=== PATIENT | male | born 1950 | race Caucasian/White ===

== ENCOUNTER → 2025-05-22 14:05 | Outpatient (BNVA) | payer OTHER, SELFPAY | PROVIDERS: Family Provider Electrodiagnostic Medicine; Referring Provider Family Medicine Geriatric Medicine; Visit Provider Specialist | DX: R20.0 Anesthesia of skin (principal); R20.2 Paresthesia of skin; M79.601 Pain in right arm; M79.602 Pain in left arm | CPT/HCPCS: 95911 ==

== ENCOUNTER 2025-05-22 15:23 | Inpatient (IN) | payer OTHER, SELFPAY ==
[2025-05-22] VITALS (11 sets, daily range): BP systolic 105–180; BP diastolic 59–90; PULSE 57–69; RESP 15–18; TEMP 36.4–37; O2SAT 95–98; BMI 26.4; BMI 25.5
--- NOTE | 2025-05-22 15:28 | ECG_ITS ---
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
--- NOTE | 2025-05-22 15:30 | XR_ITS ---
WS: [id number] Portable AP upright chest, 05/22/2025 Clinical Data: chest pain Comparison: Portable chest, 02/19/2016. Findings: No nodules, masses or effusions are seen. The heart is normal. The pulmonary vascularity is not increased. No pneumonia or pneumothorax is seen. The aortic arch and descending thoracic aorta show tortuosity. Monitor leads are on the chest wall. XR/XR chest 1V portable [id number] Impression: Atherosclerosis.
--- OUTSIDE RECORDS SUMMARY | 2025-05-22 15:40 | XMS_ITS | Encounter Summary ---
Author Organization [employer] [facility] Address [address] [place] [address] Care Team Providers Care Meat And Poultry Inspector Name Role Phone Unavailable Primary Care Provider Unavailabl e Encounter Details Date Type Department Care Team (Latest Contact Info) Description 09/22/2000 Outpatient Historical [facility] Isaiah Tee, Kenney Veloz MD [address] [place] [phone] Unspecified endocrine disorder (Primary Dx) Social History Tobacco Use Types Packs/Day Years Used Date Smoking Tobacco: Never Assessed Sex and Gender Information Value Date Recorded Sex Assigned at Not on file 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
--- OUTSIDE RECORDS SUMMARY | 2025-05-22 15:40 | XMS_ITS | Clinical Summary ---
Author Organization [employer] Address [address] 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
--- OUTSIDE RECORDS SUMMARY | 2025-05-22 15:40 | XMS_ITS | Encounter Summary ---
Author Organization [employer] [facility] Address [address] [place] [address] Care Team Providers Care Pig Farm Manager Name Role Phone Unavailable Primary Care Provider Unavailabl e Encounter Details Date Type Department Care Team (Latest Contact Info) Description 12/17/1998 Outpatient Historical [facility] Isaiah Tee, Kenney Veloz MD [address] [place] [phone] Routine medical exam (Primary Dx) Social History Tobacco Use Types Packs/Day Years Used Date Smoking Tobacco: Never Assessed Sex and Gender Information Value Date Recorded Sex Assigned at Not on file 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
--- OUTSIDE RECORDS SUMMARY | 2025-05-22 15:40 | XMS_ITS | Encounter Summary ---
Author Organization [employer] [facility] Address [address] [place] [address] Care Team Providers Care Senior Web Developer Name Role Phone Unavailable Primary Care Provider Unavailabl e Encounter Details Date Type Department Care Team (Latest Contact Info) Description 09/24/1998 Outpatient Historical [facility] Isaiah Tee, Kenney Veloz MD [address] [place] [phone] Allergic rhinitis, cause unspecified (Primary Dx) Social History Tobacco Use Types Packs/Day Years Used Date Smoking Tobacco: Never Assessed Sex and Gender Information Value Date Recorded Sex Assigned at Not on file 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
--- OUTSIDE RECORDS SUMMARY | 2025-05-22 15:40 | XMS_ITS | Encounter Summary ---
Author Organization [employer] [facility] Address [address] [place] [address] Care Team Providers Care Post Hole Digging Machine Operator Name Role Phone Unavailable Primary Care Provider Unavailabl e Encounter Details Date Type Department Care Team (Latest Contact Info) Description 10/02/2000 Outpatient Historical [facility] Isai Horan MD [address] [phone] Counseling NOS(V65.40) (Primary Dx) Social History Tobacco Use Types Packs/Day Years Used Date Smoking Tobacco: Never Assessed Sex and Gender Information Value Date Recorded Sex Assigned at Not on file 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
--- OUTSIDE RECORDS SUMMARY | 2025-05-22 15:40 | XMS_ITS | Encounter Summary ---
Author Organization [employer] [facility] Address [address] [place] [address] Care Team Providers Care Gravel Wheeler Name Role Phone Unavailable Primary Care Provider Unavailabl e Encounter Details Date Type Department Care Team (Latest Contact Info) Description 11/08/2001 Outpatient Historical [facility] Isaiah Tee, Kenney Veloz MD [address] [place] [phone] ALLERGIC RHINITIS NEC (Primary Dx); BRONCHITIS NOS Social History Tobacco Use Types Packs/Day Years Used Date Smoking Tobacco: Never Assessed Sex and Gender Information Value Date Recorded Sex Assigned at Not on file 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
--- OUTSIDE RECORDS SUMMARY | 2025-05-22 15:40 | XMS_ITS | Encounter Summary ---
Author Organization [employer] [facility] Address [address] [place] [address] Care Team Providers Care Employment Program Representative Name Role Phone Unavailable Primary Care Provider Unavailabl e Encounter Details Date Type Department Care Team (Latest Contact Info) Description 10/23/2000 Outpatient Historical [facility] Isaiah Tee, Kenney Veloz MD [address] [place] [phone] Esophageal reflux (Primary Dx) Social History Tobacco Use Types Packs/Day Years Used Date Smoking Tobacco: Never Assessed Sex and Gender Information Value Date Recorded Sex Assigned at Not on file 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
[2025-05-22 15:53] LABS: Hematocrit 44.3 % (37-53); Hemoglobin 14.60 g/dL (11.27-16.99); Mean Corpuscular HGB Conc 33.0 g/dL (30-55); Mean Corpuscular Hemoglobin 28.7 pg (27-33); Mean Corpuscular Volume 87.0 fl (82-101); Nucleated Red Blood Cells % 0 %; Platelet Count 302 10^3/cmm (157-399); Red Blood Count 5.09 10^6/uL (3.85-5.65); White Blood Count 12.49 10^3/uL (3.29-11.43)
[2025-05-22 16:19] LABS: Troponin(5th) Baseline 225 ng/L (0-15)
[2025-05-22 16:20] LABS: Slide Review Slide Review Perform
--- NOTE | 2025-05-22 16:23 | W.ED.CHESTPA ---
HPI - Chest Pain General: Chief Complaint: Chest Pain Stated Complaint: chest pain / abn labs (sent by vt) Time Seen by Provider: 05/22/25 15:53 History of Present Illness: 75-year-old male presents emergency room with complaint of chest pain. He was seen at the [facility] and had a single troponin done which resulted in greater than 400.. He had been intermittently having chest pain for 2 weeks. He is intermittently having chest pain for the last 2 weeks. He was directed to the emergency room by his primary care doctor. Initial EKG does not show any acute changes. Patient states symptoms began 2 weeks ago he an episode where after he worked during the day that night it woke him up he had severe shortness of breath diaphoresis chest pain for several hours it resolved he rolled off the tach fever since then he is intermittently had symptoms with exertion. He has been very mild chest pain now. Associated symptoms: Deny abdominal pain, dyspnea or fever(s) Related Data Home Medications ?Medication ?Instructions ?Recorded ?Confirmed buspirone 10 mg tablet 5 mg PO BID 05/23/25 05/23/25 cyanocobalamin (vitamin B-12) 1,000 mcg PO DAILY 05/23/25 05/23/25 1,000 mcg tablet pantoprazole 20 mg tablet,delayed 20 mg PO QAM 05/23/25 05/23/25 release (Protonix) Previous Rx's ?Medication ?Instructions ?Recorded apixaban 5 mg tablet (Eliquis) 5 mg PO BID@0900,2100 90 days #90 05/24/25 tabs atorvastatin 40 mg tablet 40 mg PO BEDTIME 90 days #90 tabs 05/24/25 clopidogrel 75 mg tablet 75 mg PO DAILY 90 days #90 tabs 05/24/25 Allergies Allergy/AdvReac Type Severity Reaction Status Date / Time No Known Allergies Allergy Verified 05/22/25 15:34 Review of Systems Const: Denies: fever(s) or chills Card: Reports: chest pain Resp: Denies: dyspnea GI: Denies: abdominal pain : Denies: dysuria, urinary frequency or urinary urgency Musc: Denies: neck pain or back pain Skin/Breast: Denies: rash PFSH ED PFSH: Social History Smoking and tobacco/nicotine status: never used tobacco/nicotine Physical Exam Const: GENERAL APPEARANCE: cooperative ORIENTATION/CONSCIOUSNESS: Yes awake, Yes oriented to person, Yes oriented to place and Yes oriented to time HENMT: COMMON NORMALS: normocephalic, atraumatic and hearing grossly normal bilaterally HEAD & SCALP: normocephalic and atraumatic Resp: COMMON NORMALS: normal respiratory effort, No retractions, No use of accessory muscles and clear to auscultation bilaterally AUSCULTATION: clear to auscultation bilaterally Cardio: COMMON NORMALS: regular rate, regular rhythm and No murmurs present (Cardio) RATE: regular rate RHYTHM: regular rhythm GI: COMMON NORMALS: Soft to palpation and No hepatosplenomegaly present AUSCULTATION: Yes normoactive bowel sounds PALPATION: Yes Soft to palpation, No Tenderness to palpation present (GI), No Guarding due to palpation present (GI) and Yes No hepatosplenomegaly present Extremity: COMMON NORMALS: normal to inspection, capillary refill normal, no clubbing, cyanosis or edema, no calf tenderness and no pedal edema Neuro: SENSORIUM/ORIENTATION: Yes oriented to person, Yes oriented to place and Yes oriented to time Skin: COMMON NORMALS: no rashes or lesions noted GENERAL SKIN EXAM: no rashes or lesions noted Course Vital Signs: Vital signs: Vital Signs Temperature 97.3 F L 05/24/25 10:17 Pulse Rate 54 L 05/24/25 10:17 Respiratory Rate 16 05/24/25 10:17 Blood Pressure 116/78 05/24/25 10:17 Pulse Oximetry 96 05/24/25 10:17 Oxygen Delivery Me thod Room Air 05/24/25 03:47 MDM - Chest Pain Medical Decision Making Medical decision making Social determinants: None I reviewed the patient's medical record. I reviewed the patient's current home meds. Alternate historians: Family members. Differential diagnosis: Acute coronary syndrome versus PE versus congestive heart failure Lab Review: CBC normal white count normal hemoglobin and platelet. Initial troponin 225 with a 1 hour troponin of 204. Blood glucose 120 remainder the chemistries are normal BNP 697. Imaging:Chest x-ray mild hyperinflation no cardiomegaly no effusions no pulmonary aphasia Assessment of risk Level of risk: High Hospitalization considerations: Hospitalized based on elevated troponins Reexamination: No chest pain no acute EKG changes Assessment and plan: Admit with NSTEMI with elevated troponin. Discussed with hospitalist orders written will consult cardiology patient initiated on heparin weight-based protocol. Lab Data 05/24/25 03:07 05/24/25 03:07 Radiology Impressions Chest X-Ray 05/22/25 15:30 Impression: Atherosclerosis. Laboratory Results WBC 12.49 10^3/uL (3.29-11.43) H 05/22/25 15:44 RBC 5.09 10^6/uL (3.85-5.65) 05/22/25 15:44 Hgb 14.60 g/dL (11.27-16.99) 05/22/25 15:44 Hct 44.3 % (37-53) 05/22/25 15:44 MCV 87.0 fl (82-101) 05/22/25 15:44 MCH 28.7 pg (27-33) 05/22/25 15:44 MCHC 33.0 g/dL (30-55) 05/22/25 15:44 RDW 13.4 % (12.1-15.1) 05/22/25 15:44 Plt Count 302 10^3/cmm (157-399) 05/22/25 15:44 MPV 10.5 fL (7.4-10.4) H 05/22/25 15:44 Neut % (Auto) 35.5 % 05/22/25 15:44 Lymph % (Auto) 49.1 % 05/22/25 15:44 [place] % (Auto) 12.2 % 05/22/25 15:44 Eos % (Auto) 2.5 % 05/22/25 15:44 Baso % (Auto) 0.5 % 05/22/25 15:44 Neut # (Auto) 4.43 10^3/uL (1.8-7.7) 05/22/25 15:44 Lymph # (Auto) 6.1 10^3/uL (0.8-4.8) H 05/22/25 15:44 [place] # (Auto) 1.5 10^3/uL (0.2-0.9) H 05/22/25 15:44 Eos # (Auto) 0.3 10^3/uL (0.0-0.8) 05/22/25 15:44 Baso # (Auto) 0.1 10^3/uL (0.0-0.1) 05/22/25 15:44 Nucleated RBC % (auto) 0 % 05/22/25 15:44 Nucleated RBCs # 0.0 /100WBC 05/22/25 15:44 Sodium 138 mmol/L (136-145) 05/22/25 15:44 Potassium 4.5 mmol/L (3.5-5.1) 05/22/25 15:44 Chloride 99 mmol/L (98-107) 05/22/25 15:44 Carbon Dioxide 26 mmol/L (22-29) 05/22/25 15:44 Anion Gap 17.5 (5-19) 05/22/25 15:44 BUN 23 mg/dL (8-23) 05/22/25 15:44 Creatinine 1.0 mg/dL (0.7-1.2) 05/22/25 15:44 GFR Calculation Not Reportable 05/22/25 15:44 Glucose 102 mg/dL (65-115) 05/22/25 15:44 Estimat Average Glucose 114 05/22/25 15:44 Hemoglobin A1c 5.6 % (4.0-6.0) 05/22/25 15:44 Calculated Osmolality 290 mOsm/kg (285-295) 05/22/25 15:44 Calcium 9.7 mg/dL (8.5-10.5) 05/22/25 15:44 Total Bilirubin 0.2 mg/dL (0.15-1.2) 05/22/25 15:44 AST 19 U/L (0-40) 05/22/25 15:44 ALT 15 U/L (0-41) 05/22/25 15:44 Alkaline Phosphatase 98 U/L (40-130) 05/22/25 15:44 Troponin T Baseline 225 ng/L (0-15) H* 05/22/25 15:44 Troponin T 60 Minute 204.9 ng/L (0-15) H 05/22/25 16:32 Delta Troponin T -20.1 ABS# (0-10) L 05/22/25 16:32 NT-Pro-B Natriuret Pep 697 pg/mL (0-450) H 05/22/25 15:44 Total Protein 7.6 g/dL (6.6-8.7) 05/22/25 15:44 Albumin 4.4 g/dL (3.5-5.2) 05/22/25 15:44 Globulin 3.2 g/dL (1.3-4.6) 05/22/25 15:44 Triglycerides 284 mg/dL (0-150) H 05/22/25 15:44 Cholesterol 260 mg/dL (0-200) H 05/22/25 15:44 LDL Cholesterol, Calc 163 mg/dL (50-129) H 05/22/25 15:44 HDL Cholesterol 40 mg/dL (60-100) L 05/22/25 15:44 LDL/HDL Ratio 4.08 RATIO (0.00-3.22) H 05/22/25 15:44 Cholesterol/HDL Ratio 6.50 mg/dL (1.0-5.00) H 05/22/25 15:44 TSH 1.22 uIU/mL (0.27-4.20) 05/22/25 15:44 All radiology interpretation(s) finalized by discharge EKG Data EKG 1: I personally reviewed and interpreted this EKG as follows: Interpretation: EKG 05/22/2025 1528 normal sinus rhythm rate of 69 WA interval 180 QTc [address] elevation. Nondiagnostic Q waves in 2 and aVF. No previous EKGs for comparison EKG 2: I personally reviewed and interpreted this EKG as follows: Interpretation: EKG 05/22/2025 1658 sinus rhythm nondiagnostic Q waves in 2 3 and aVF. Some mild lateral ST depression. No acute ST elevation. Compared to EKG done earlier same day mild ST depression in V4 and 5 is new. Discharge Plan Discharge Patient Disposition: Admitted As Inpatient Admit Provider: Sin Fajardo Clinical Impression: NSTEMI (non-ST elevated myocardial infarction), Chest pain, Hypertension, Atrial fibrillation Condition: Stable Discharge Diet: Cardiac Discharge Activity: Resume usual activity Coding Level of Care Code ED Inspector Floor for Chg Fwd Heart Score HEART Score Components History: Highly Suspicious EKG: Non-specific Changes Age: 65 or more yrs Risk Factors: 1 or 2 Risk Factors Troponin: Baseline Trop >45 ng/L HEART Score RESULT HEART Score: 8
--- NOTE | 2025-05-22 16:30 | ECG_ITS ---
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
[2025-05-22 16:40] LABS: Alanine Aminotransferase 15 U/L (0-41); Albumin Level 4.4 g/dL (3.5-5.2); Alkaline Phosphatase 98 U/L (40-130); Anion Gap 17.5 (5-19); Aspartate Amino Transferase 19 U/L (0-40); Blood Urea Nitrogen 23 mg/dL (8-23); Calcium 9.7 mg/dL (8.5-10.5); Carbon Dioxide 26 mmol/L (22-29); Chloride 99 mmol/L (98-107); Globulin 3.2 g/dL (1.3-4.6); Glucose 102 mg/dL (65-115); NT Pro B Type Natriuretic Pept 697 pg/mL (0-450); Osmolality Calculated 290 mOsm/kg (285-295); Potassium 4.5 mmol/L (3.5-5.1); Sodium 138 mmol/L (136-145); Total Protein 7.6 g/dL (6.6-8.7)
--- NOTE | 2025-05-22 17:01 | P.CONIM_ITS ---
<Statement entered by Cruz Berman M.D - 05/29/25 10:55> Patient was cared for in conjunction with an advanced practice practitioner.? I reviewed the chart and all pertinent data including imaging, telemetry, and laboratory results.? I discussed the patient in detail with the advanced practice practitioner.? Please see? their documentation for consult note, testing results and agreed upon plan of care for the patient. Providers/Reason For Consult 2 Consulting Physician/Specialty*: Dr. Berman Reason for Consult*: Chest pain, NSTEMI Requesting Physician: Dr. Enrique History of Present Illness History of Present Illness Foreign Nina is a 75 year old male history of hypertension, no known cardiac history, never smoker, postive family hx for heart disease came into the ER today due to ongoing chest pain. 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 At the time, he thought that it was residual side effects from his tick fever. The next day, he developed chest pain that woke him up from his sleep with nausea and cold sweats. In the ED EKG showed no acute ST changes or T wave abnormalities. He states at this time, he is mostly chest pain free but has a small pain to the left side of his chest. He was given aspirin 324 mg. Troponin was elevated at 225-204. Vitals are stable. Labs are stable. Review of Systems 2 Narrative: Reports slight chest pain to the left side of the chest that is intermittent denies nausea/vomiting denies stroke like symptoms Denies shortness of breath, swelling, orthopnea denies fever chills or body aches Medications/Allergies Home Medications ?Medication ?Instructions ?Recorded ?Confirmed ?Last Taken ?Type No Known Home Medications 05/22/2505/05 Unknown History Allergies Allergy/AdvReac Type Severity Reaction Status Date / Time No Known Allergies Allergy Verified 05/22/25 15:34 PFSH Acute 2 PFSH: Social History Smoking and tobacco/nicotine status: never used tobacco/nicotine Vitals/I&O/Wt Last Vital Signs Temp 97.6 F 05/22/25 15:30 Pulse 62 05/22/25 16:34 Resp 18 05/22/25 16:34 BP 172/90 05/22/25 16:34 Pulse Ox 97 05/22/25 16:34 O2 Del Method Room Air 05/22/25 16:34 05/22/25 05/22/25 05/22/25 06:59 14:59 22:59 Intake Total 0 / 0 Balance 0 / 0 Weight last 48 hrs Weight 184 lb Physical Exam 2 Const: COMMON NORMALS: no acute distress and patient oriented x3 HENMT: OTHER: No carotid bruit bilaterally Neck/C-Spine: COMMON NORMALS: no JVD Resp: COMMON NORMALS: normal respiratory effort, No use of accessory muscles and clear to auscultation bilaterally AUSCULTATION: clear to auscultation bilaterally Cardio: COMMON NORMALS: no JVD, regular rate, regular rhythm, S1 normal heart sound present, S2 normal heart sound present and Peripheral pulses 2+ throughout RATE: regular rate RHYTHM: regular rhythm HEART SOUNDS: S1 normal heart sound present and S2 normal heart sound present PERIPHERAL PULSES: Peripheral pulses 2+ throughout Extremity: COMMON NORMALS: no clubbing, cyanosis or edema Neuro: COMMON NORMALS: patient oriented x3 Data 05/22/25 15:44 05/22/25 15:44 A&P Assessment and plan 1. Chest pain: 2. Hypertension: 3. NSTEMI (non-ST elevated myocardial infarction): Plan: Patient presents with hx of typical unstable angina, NSTEMI with multiple risk factors for CAD. Recommend placing on heparin drip, patient was loaded with aspirin and 600 of plavix, proceed with [facility] possible PCI in the AM. Dr. Berman discussed this with patient and family at bedside, and he fully agreed to proceed. Will do this at 7AM. Continue to [facility] for worsening chest pain or EKG changes. Will get echo as well. Thank you Dr. Enrique, for allowing us to care for this very pleasant 75 year old gentleman. PDMP PDMP Reviewed: Not Reviewed Consult Attestations 2 Medical Necessity Statement: Deferred to primary. Coding Level of Care Code Acute Code for Chg Fwd Diagnoses Chest pain R07.9 Hypertension I10 NSTEMI (non-ST elevated myocardial infarction) I21.4
--- NOTE | 2025-05-22 17:07 | PM.HP ---
Providers/Chief Complaint Chief Complaint: chest pain / abn labs (sent by dc) History of Present Illness Foreign Nina is a 75 year old male with past medical history of GERD, depression/anxiety, tickborne illness who was seen in the ER by provider for intermittent chest pain x 2 weeks and elevated troponin found on labs done at the [facility] earlier today. Patient states that he still has left-sided dull pain, pain is worse with exertion. Patient had episode of sharp pain, diaphoresis, and vomiting approximately 2 weeks ago and has continued to have intermittent chest pain since this event. Patient denies current shortness of breath, nausea, vomiting, diarrhea, abdominal pain, recent falls or injuries, any type of bleeding, dark or tarry stools, headache, or syncope. Patient has been under the management of primary care provider and being treated since December of this year for tickborne illness. Patient was treated in the ER with 324 mg aspirin, 600 mg Plavix, 50 mg Benadryl, placed on heparin drip and cardiology was consulted. Dr. Berman graciously agrees to consultation and management, would like the patient admitted to [facility] with continued cardiac monitoring, n.p.o. at midnight for heart catheterization tomorrow morning. Admitting vital signs blood pressure 172/90, pulse 62, respirations 18, temperature 97.6, O2 saturation 97% on room air. Vital signs reviewed WBC 12.49, RBC 5.09, hemoglobin 14.60, sodium 138, potassium 4.5, BUN 23, creatinine 1.0, troponin 225, proBNP 697. Chest x-ray with arthrosclerosis, no acute pulmonary concerns. Repeat EKG with sinus rhythm, UT 193, QTc 415, no ischemic changes noted. Review of Systems General: Reports: 10 or more systems reviewed and unremarkable except in HPI and below Medications/Allergies Home Medications ?Medication ?Instructions ?Recorded ?Confirmed ?Last Taken ?Type No Known Home Medications 05/22/25 05/22/25 Unknown History Allergies Allergy/AdvReac Type Severity Reaction Status Date / Time No Known Allergies Allergy Verified 05/22/25 15:34 PFSH Acute PFSH: Social History Smoking and tobacco/nicotine status: never used tobacco/nicotine Vitals/I&O/Wt Last Vital Signs Temp 97.6 F 12/18/25 15:30 Pulse 62 05/22/25 16:34 Resp 18 05/22/25 16:34 BP 172/90 05/22/25 16:34 Pulse Ox 97 05/22/25 16:34 O2 Del Method Room Air 05/22/25 16:34 05/22/25 05/22/25 05/22/25 06:59 14:59 22:59 Intake Total 0 / 0 Balance 0 / 0 Weight last 48 hrs Weight 83.461 kg Physical Exam Const: COMMON NORMALS: patient oriented x3 and alert GENERAL APPEARANCE: cooperative ORIENTATION/CONSCIOUSNESS: Yes awake HENMT: COMMON NORMALS: oropharynx normal Neck/C-Spine: COMMON NORMALS: no JVD Resp: COMMON NORMALS: normal respiratory effort and clear to auscultation bilaterally AUSCULTATION: clear to auscultation bilaterally Cardio: COMMON NORMALS: no JVD, regular rhythm, S1 normal heart sound present, S2 normal heart sound present and No murmurs present (Cardio) RHYTHM: regular rhythm HEART SOUNDS: S1 normal heart sound present and S2 normal heart sound present GI: COMMON NORMALS: Normal to inspection, nondistended, normoactive bowel sounds present, Soft to palpation and non-tender PALPATION: Yes Soft to palpation Extremity: COMMON NORMALS: no joint enlargement and no pedal edema Neuro: COMMON NORMALS: patient oriented x3 and moves all extremities SENSORIUM/ORIENTATION: Yes alert Skin: COMMON NORMALS: no rashes or lesions noted GENERAL SKIN EXAM: no rashes or lesions noted Data 05/22/25 15:44 05/22/25 15:44 A&P Assessment and plan 1. NSTEMI (non-ST elevated myocardial infarction): 2. Chest pain: 3. GERD (gastroesophageal reflux disease): 4. Anxiety and depression: 5. Hypertension: Plan: NSTEMI Chest Pain - Elevated Troponin 224, pending repeat - Cardiac monitoring - Greatly appreciate cardiology consultation and management with - Heparin gtt with aPTT protocols - NPO Midnight with planned heart cath in the morning Hypertension - No home medication - Admitting blood pressure 172/90 - PRN IV hydralazine GERD - PPI Anxiety/Depression - Stable - Resume home dosing Buspar after verification - Occasionally uses marijuana for treatment Hx of Tick Borne Illness - Treated with course of doxycycline and prednisone in December of this year - Chronic fatigue and joint pain - Managed by PCP at [facility] PPX: Heparin gtt GI PPX: PPI Code Status: Full code PDMP PDMP Reviewed: Last Reviewed 05/22/25 17:20 by Jovita Anand, HAND FRETTED INSTRUMENT MAKER Attestations Medical Necessity Statement*: Will admit inpatient crossing 2 midnights for NSTEMI with continued chest pain, cardiology management, heparin drip, and management of comorbidities. and High Time for a total of 75 minutes, includes reviewing past or interval history, examining/interviewing patient, placing orders, counseling patient/family/other support, updating patient/family/other support, discussing plan of care with staff, communicating with other healthcare providers, documenting encounter and coordinating care Diagnoses NSTEMI (non-ST elevated myocardial infarction) I21.4 Chest pain R07.9 GERD (gastroesophageal reflux disease) K21.9 Anxiety and depression F41.9; F32.A Hypertension I10
--- NOTE | 2025-05-22 17:14 | USCV_ITS ---
Foreign Nina Age: 75 Gender: M : 1950 Exam Date: 05/22/2025 22:23 Ordering Phys: Jovita Anand NP Technologist: JOLENE Exam Location: [facility] [place] Indication: NSTEMI, elevated ProBNP, HTN, GERD, depression, BP: 147 / 78 HR: 51 Rhythm: Sinus bradycardia Technical Quality: Adequate MEASUREMENTS (Male / Female) Normal Values 2D ECHO LV Diastolic Diameter PLAX 4.4 cm 4.2 - 5.9 / 3.9 - 5.3 cm IVS Diastolic Thickness 1.7 cm 0.6 - 1.0 / 0.6 - 0.9 cm IVS Systolic Thickness 1.6 cm LVPW Diastolic Thickness 1.2 cm 0.6 - 1.0 / 0.6 - 0.9 cm LVPW Systolic Thickness 1.2 cm LVOT Diameter 2.2 cm LV Ejection Fraction 2D Teich 65.6 % LV Ejection Fraction MOD 4C 60.9 % LV Ejection Fraction MOD 2C 66.3 % LV Ejection Fraction 2C AL 68.0 % LA Diameter 3.9 cm Aorta at Sinotubular Diameter 3.1 cm IVC Diameter 1.5 cm M-MODE LA Ao Ratio MM 1.5 AV Cusp Separation MM 2.1 cm DOPPLER AV Peak Velocity 159.0 cm/s LVOT Peak Velocity 88.0 cm/s AV Area Cont Eq vti 2.5 cm squared AV Area Cont Eq pk 2.1 cm squared MV Peak Velocity 92.0 cm/s MV Area PHT 1.9 cm squared Mitral E to A Ratio 0.6 PV Peak Velocity 99.0 cm/s FINDINGS Left Ventricle Normal left ventricular size, systolic function and wall thickness, with no regional wall motion abnormalities. Left ventricular ejection fraction is estimated at 60 %. Grade I/IV diastolic dysfunction (abnormal relaxation filling pattern), normal to mildly elevated filling pressures. Right Ventricle Normal right ventricular size and systolic function. Right Atrium Normal right atrial size. Left Atrium Normal left atrial size. IA Septum Normal appearance of the interatrial septum. Mitral Valve Moderately thickened mitral valve. No mitral valve stenosis. Trace mitral valve regurgitation. Aortic Valve Moderate aortic valve calcification. No aortic valve stenosis. Trace aortic valve regurgitation. Tricuspid Valve Normal tricuspid valve structure. No tricuspid valve stenosis or regurgitation. Normal pulmonary pressure. Pulmonic Valve Mild pulmonary valve regurgitation. Pericardium No pericardial effusion. Aorta Normal diameter of the aortic root and ascending thoracic aorta. IVC Normal IVC diameter. CONCLUSIONS Normal left ventricular size, systolic function and wall thickness, with no regional wall motion abnormalities. Left ventricular ejection fraction is estimated at 60 %. Grade I/IV diastolic dysfunction (abnormal relaxation filling pattern), normal to mildly elevated filling pressures. Moderately thickened mitral valve. No mitral valve stenosis. Trace mitral valve regurgitation. Moderate aortic valve calcification. No aortic valve stenosis. Trace aortic valve regurgitation. Mild pulmonary valve regurgitation. There is no pericardial effusion. Right atrial pressure is around 5 mm of mercury. Aishwarya Chaney MD (Electronically Signed) Final Date: 23 May 2025 09:57 S
[2025-05-22] MEDS: heparin drip 25,000 UNIT/500 ML PREMIX 20.03 UNIT IV (17:19)
[2025-05-22] MEDS: heparin 5,000 unit/mL INJ 1 mL IVP (17:20)
[2025-05-22] MEDS: LORazepam 2 mg/mL INJ 1 mL 1 MG IVP (17:29)
--- NOTE | 2025-05-22 17:29 | PC.NURSE ---
PATIENT REQUESTS SOMETHING TO CALM NERVES. EVONNE VERBALIZED 1 MG ATIVAN IVP.
[2025-05-22] MEDS: pantoprazole 40 mg SDV IVP (20:30)
[2025-05-22 20:46] LABS: Cholesterol 260 mg/dL (0-200); HDL Cholesterol 40 mg/dL (60-100); Thyroid Stimulating Hormone 1.22 uIU/mL (0.27-4.20); Triglycerides 284 mg/dL (0-150)
[2025-05-22 21:27] LABS: Estmated Average Glucose 114; Hemoglobin A1C 5.6 % (4.0-6.0)
--- NOTE | 2025-05-22 21:30 | ECG_ITS ---
[facility] Test Date: 2025-05-22 Pat Name: Foreign Nina Department: Room: 101 Gender: Male Program Proposals Coordinator: : 1950 Requested By: Aminata López Order Number: [id number] Reading MD: CRISTIANA EDWARDS Measurements Intervals [place] Rate: 57 P: 54 MO: 193 QRS: 40 QRSD: 94 T: -65 QT: 434 QTc: 424 Interpretive Statements SINUS BRADYCARDIA NONSPECIFIC T-WAVE ABNORMALITY Compared to ECG 05/22/2025 16:58:07 Sinus rhythm no longer present T-wave abnormality still present Electronically Signed On 05-28-2025 21:04:03 CHARGE ACCOUNT CLERK by CRISTIANA EDWARDS [email or web address] [id number]
[2025-05-22 23:24] LABS: Partial Thromboplastin Time 42.8 SECONDS (23.9-36.7)
[2025-05-22 23:31] LABS: Troponin 5 6HR Delta -26.4 ng/L (0-12)
[2025-05-22 23:32] LABS: Troponin 5 6HR 198.6 ng/L (0-15)
[2025-05-23] VITALS (52 sets, daily range): BP systolic 97–148; BP diastolic 60–102; PULSE 66–119; RESP 12–29; TEMP 36.6–37.1; O2SAT 92–98
--- NOTE | 2025-05-23 03:11 | P.PN_ITS ---
Subjective 2 Subjective: Rapid response was called on 75-year-old male at 2:20 AM. He was going to the bathroom and assisted when he became unresponsive and weak. He was found to have blood sugar 112 but blood pressure 92/54 with heart rate 56. Nurse reports that he had not received any beta-blockers or medications. He did not have any stool output or vomiting Vitals/I&O/Wt Last Vital Signs Temp 98.6 F 05/22/25 20:00 Pulse 59 L 05/22/25 23:52 Resp 16 05/22/25 23:52 BP 105/59 05/22/25 23:52 Pulse Ox 97 05/22/25 23:52 O2 Del Method Room Air 05/22/25 23:52 05/22/25 05/22/25 05/23/25 14:59 22:59 06:59 Intake Total 0 / 0 149.891 / 149.891 Balance 0 / 0 149.891 / 149.891 Weight last 48 hrs Weight 80.768 kg Weight 83.461 kg Physical Exam 2 Narrative: General Well-developed thin male lethargic and initially befuddled. He did come around and become more conversant. Mentation flat affect slowed response but he is alert and oriented to person place date CV regular bradycardic rhythm no loud murmur Lungs clear to auscultation bilaterally Abdomen positive bowel tones soft nontender Calves no tenderness cords or pretibial edema or asymmetry Skin damp warm Data 05/22/25 15:44 05/22/25 15:44 A&P Assessment and plan 1. Syncope: Called to evaluate patient for rapid response who became unresponsive while being helped to the bathroom blood pressure found to be low 92/54 heart rate 56. He has as needed hydralazine but that was not actually given. Cannot exclude intestinal bleeding but he shows no outward signs of that in terms of abdominal pain nausea vomiting melena. Troponin was elevated EKG unremarkable but bradycardia without heart block is significant. Will check TSH. Also consider right coronary artery ischemia. Echocardiogram in selective coronary angiogram pending in the morning Will obtain orthostatics following the first bolus. TSH was 1.22 2. NSTEMI (non-ST elevated myocardial infarction): [facility] with a troponin of 225 and at 60 minutes 204 and 6 hours 198 patient is going to angiogram in the morning. EKG sinus bradycardia rhythm nonspecific ST-T wave abnormality 3. Chest pain: Resolved 4. GERD (gastroesophageal reflux disease): Patient is on proton pump inhibitor. He denies abdominal pain nausea vomiting or melena 5. Hypertension: Patient was hypertensive earlier today now hypotensive and also notably bradycardic despite syncope PDMP PDMP Reviewed: Not Reviewed Attestations 2 Medical Necessity Statement*: Patient remains in the hospital and expect to require 2 midnights with new development of syncope, bradycardia Coding Level of Care Code 82039 Diagnoses Syncope R55 NSTEMI (non-ST elevated myocardial infarction) I21.4 Chest pain R07.9 GERD (gastroesophageal reflux disease) K21.9 Hypertension I10 Time Spent (min) 55
[2025-05-23 04:49] LABS: Hematocrit 38.9 % (37-53); Hemoglobin 12.80 g/dL (11.27-16.99); Mean Corpuscular HGB Conc 32.9 g/dL (30-55); Mean Corpuscular Hemoglobin 28.6 pg (27-33); Mean Corpuscular Volume 87.0 fl (82-101); Nucleated Red Blood Cells % 0 %; Platelet Count 263 10^3/cmm (157-399); Red Blood Count 4.47 10^6/uL (3.85-5.65); White Blood Count 10.50 10^3/uL (3.29-11.43)
[2025-05-23 05:11] LABS: Partial Thromboplastin Time 52.6 SECONDS (23.9-36.7)
[2025-05-23 06:02] LABS: Alanine Aminotransferase 13 U/L (0-41); Albumin Level 3.7 g/dL (3.5-5.2); Alkaline Phosphatase 81 U/L (40-130); Anion Gap 16.0 (5-19); Aspartate Amino Transferase 17 U/L (0-40); Blood Urea Nitrogen 17 mg/dL (8-23); Calcium 8.9 mg/dL (8.5-10.5); Carbon Dioxide 22 mmol/L (22-29); Chloride 104 mmol/L (98-107); Creatinine Clr Calc Pharmacy 84.5711; Globulin 2.4 g/dL (1.3-4.6); Glucose 112 mg/dL (65-115); Magnesium 2.1 mg/dL (1.7-2.3); Osmolality Calculated 288 mOsm/kg (285-295); Potassium 4.0 mmol/L (3.5-5.1); Sodium 138 mmol/L (136-145); Total Protein 6.1 g/dL (6.6-8.7)
--- NOTE | 2025-05-23 07:22 | W.PM.OPSUD ---
Surgery/Procedure H&P Update DATE OF PROCEDURE: May 23, 2025 DATE H&P PERFORMED: 05/22/25 H&P UPDATE INFORMATION: I have reviewed H&P completed within last 30 days, I have examined patient prior to procedure and No changes to prior documentation PREOP DIAGNOSIS: NSTEMI PRIMARY INDICATION FOR PROCEDURE: NSTEMI PLANNED PROCEDURE: Left heart cath with possible percutaneous coronary intervention PATIENT REASSESSED PRIOR TO SEDATION, WITH NO CHANGE NOTED: Yes PHYSICAL EXAM: alert, oriented x 3, clear to auscultation bilaterally and regular rate & rhythm AIRWAY EVAL/ANESTHESIA PLAN: normal airway, ASA III, Local Anesthesia, Risks, benefits & alternatives of sedation and/or procedure discussed and Patient agrees to continue as planned ADDITIONAL INFORMATION: Moderate sedation
--- NOTE | 2025-05-23 07:41 | PC.NURSE ---
Addendum entered by Thais Jefferson RN 05/23/25 08:01: Patient stabilized by rapid response team, patient remains in room 101 on cardiac stepdown unit. Original Note: Patient needed to go to bathroom. I assisted patient into bathroom and waited outside. I heard the iv pole hit door and immediately asked patient if he was ok, patient stated that he was not. I opened door and patient was on his knees over the toilet stating that he was going to vomit. Patient was visibly diaphoretic and very weak. I pushed emergency button in bathroom and Mari ORTEGA and Mary ORELLANA came to room. Rapid response was called. I assisted patient to floor. Patient did not loose consciousness but was very weak. Blood pressure was taken and was 92/54 with HR of 58. Patient then was assisted to his feet and walked to bed and laid down. Dr. Carroll, Aura siupet house sitter, Miriam ORTEGA-ER, Juana CANCINO-MS, Maryann ORTEGA-ICU, Patsy from lab, Eben Moulton -, and Pako ORTEGA- NPU all arrived at patient room for rapid response. Dr Carroll assessed patient . Glucose was taken and was 112 and 1000mL normal saline bolus was ordered.
--- NOTE | 2025-05-23 08:25 | PC.PHAR ---
[facility] 05/23/25 8:20am
[2025-05-23] MEDS: amiodarone 150 MG/100 ML PREMIX 400 MG IV (09:20)
--- NOTE | 2025-05-23 09:24 | ECG_ITS ---
[facility] Test Date: 2025-05-23 Pat Name: Foreign Nina Department: Room: 101 Gender: Male Intelligence Engineer: : 1950 Requested By: Cruz Berman Order Number: [id number] Reading MD: CRISTIANA EDWARDS Measurements Intervals [place] Rate: 114 P: 0 UT: 0 QRS: -3 QRSD: 100 T: -30 QT: 340 QTc: 469 Interpretive Statements ATRIAL FIBRILLATION WITH RAPID VENTRICULAR RESPONSE NONSPECIFIC T-WAVE ABNORMALITY ABNORMAL RHYTHM ECG Compared to ECG 05/22/2025 21:53:31 Sinus bradycardia no longer present T-wave abnormality still present Electronically Signed On 05-28-2025 20:19:14 FOREST ECONOMICS PROFESSOR by CRISTIANA EDWARDS [id number]
[2025-05-23] MEDS: AMIODARONE HCL/D5W 900 MG/500 ML BAG 33.33 MG IV (09:41)
--- NOTE | 2025-05-23 09:46 | PM.PROC ---
Procedure Note: Date of procedure: 05/23/25 Pre-procedure diagnosis: NSTEMI Post-procedure diagnosis: other (Total occlusion of mid to distal RCA S/P PCI with 2 stents. Severe proximal LAD stenosis s/p 1 stent) Procedure: Total occlusion of mid to distal RCA S/P PCI with 2 stents. Severe proximal LAD stenosis (confirmed to be severe with iFR) s/p 1 stent. With LAD stenting, patient went into atrial fibrillation with RVR. Dual antiplatelet therapy with aspirin and plavix. Started on amiodarone as currently in atrial fibrillation with RVR. Will resume anticoagulation later. Performing Provider: Cruz Berman Complications: None Condition: stable Disposition: floor Coding Level of Care Code Acute Code for Cameron Manriquez
--- NOTE | 2025-05-23 11:01 | PC.SOCIAL ---
IMM Updated Updated pt on IMM. No questions voiced. Provided pt a copy. Initialed, dated, & timed a copy & placed in chart.
--- NOTE | 2025-05-23 13:03 | P.PN_ITS ---
Subjective 2 Subjective: Patient status post stent to the LAD and RCA x 2. He went into A-fib RVR currently on an amiodarone drip. Denies chest pain or shortness of breath. Vitals/I&O/Wt Last Vital Signs Temp 97.8 F 05/23/25 11:56 Pulse 102 H 05/23/25 12:30 Resp 21 H 05/23/25 12:30 BP 124/89 05/23/25 12:30 Pulse Ox 97 05/23/25 12:30 O2 Del Method Room Air 05/23/25 11:56 05/22/25 05/23/25 05/23/25 22:59 06:59 14:59 Intake Total 0 / 0 1256.614 / 1256.614 439.386 / 439.386 Output Total 450 / 450 Balance 0 / 0 1256.614 / 1256.614 -10.614 / -10.614 Weight last 48 hrs Weight 178 lb 1.6 oz Weight 178 lb 1 oz Weight 184 lb Physical Exam 2 Const: COMMON NORMALS: no acute distress and patient oriented x3 HENMT: OTHER: No carotid bruit bilaterally Neck/C-Spine: COMMON NORMALS: no JVD Resp: COMMON NORMALS: normal respiratory effort, No use of accessory muscles and clear to auscultation bilaterally AUSCULTATION: clear to auscultation bilaterally Cardio: COMMON NORMALS: no JVD, regular rate, regular rhythm, S1 normal heart sound present, S2 normal heart sound present and Peripheral pulses 2+ throughout RATE: regular rate RHYTHM: regular rhythm HEART SOUNDS: S1 normal heart sound present and S2 normal heart sound present PERIPHERAL PULSES: Peripheral pulses 2+ throughout Extremity: COMMON NORMALS: no clubbing, cyanosis or edema Neuro: COMMON NORMALS: patient oriented x3 Data 05/23/25 04:35 05/23/25 04:35 A&P Assessment and plan 1. Chest pain: 2. Hypertension: 3. NSTEMI (non-ST elevated myocardial infarction): Plan: Patient denies any angina status post stent to the LAD and RCA x 2. Continue aspirin Plavix. Will add moderate intensity statin. Continue amiodarone drip. Rates are controlled at this time. BP stable. PDMP PDMP Reviewed: Not Reviewed Attestations 2 Medical Necessity Statement*: Deferred to primary Coding Level of Care Code Acute Code for Chg Fwd Diagnoses Chest pain R07.9 Hypertension I10 NSTEMI (non-ST elevated myocardial infarction) I21.4
[2025-05-23] MEDS: pantoprazole 40 mg SDV IVP (21:04)
[2025-05-24] VITALS (11 sets, daily range): BP systolic 107–122; BP diastolic 70–79; PULSE 54–102; RESP 14–33; TEMP 36.3–36.9; O2SAT 94–98
[2025-05-24 03:25] LABS: Hematocrit 41.8 % (37-53); Hemoglobin 13.70 g/dL (11.27-16.99); Mean Corpuscular HGB Conc 32.8 g/dL (30-55); Mean Corpuscular Hemoglobin 28.4 pg (27-33); Mean Corpuscular Volume 86.7 fl (82-101); Nucleated Red Blood Cells % 0 %; Platelet Count 244 10^3/cmm (157-399); Red Blood Count 4.82 10^6/uL (3.85-5.65); White Blood Count 9.94 10^3/uL (3.29-11.43)
[2025-05-24 03:45] LABS: Alanine Aminotransferase 12 U/L (0-41); Albumin Level 3.6 g/dL (3.5-5.2); Alkaline Phosphatase 85 U/L (40-130); Anion Gap 13.9 (5-19); Aspartate Amino Transferase 16 U/L (0-40); Blood Urea Nitrogen 11 mg/dL (8-23); Calcium 9.2 mg/dL (8.5-10.5); Carbon Dioxide 23 mmol/L (22-29); Chloride 105 mmol/L (98-107); Globulin 3.0 g/dL (1.3-4.6); Glucose 120 mg/dL (65-115); Magnesium 2.0 mg/dL (1.7-2.3); Osmolality Calculated 287 mOsm/kg (285-295); Potassium 3.9 mmol/L (3.5-5.1); Sodium 138 mmol/L (136-145); Total Protein 6.6 g/dL (6.6-8.7)
--- NOTE | 2025-05-24 09:09 | P.DS_ITS ---
Discharge Providers Date of Admission: 05/22/25 16:33 Date of Discharge: May 24, 2025 Attending Provider at Admission: Sin Fajardo Attending Provider at Discharge: Jovita Anand NP Diagnoses at Discharge Discharge Diagnosis 1. Chest pain: 2. Hypertension: 3. NSTEMI (non-ST elevated myocardial infarction): Reason for Visit Reason for Visit: chest pain / abn labs (sent by in) Brief History: Admission: Foreign Nina is a 75 year old male with past medical history of GERD, depression/anxiety, tickborne illness who was seen in the ER by provider for intermittent chest pain x 2 weeks and elevated troponin found on labs done at the [facility] earlier today. Patient states that he still has left-sided dull pain, pain is worse with exertion. Patient had episode of sharp pain, diaphoresis, and vomiting approximately 2 weeks ago and has continued to have intermittent chest pain since this event. Patient denies current shortness of breath, nausea, vomiting, diarrhea, abdominal pain, recent falls or injuries, any type of bleeding, dark or tarry stools, headache, or syncope. Patient has been under the management of primary care provider and being treated since December of this year for tickborne illness. Patient was treated in the ER with 324 mg aspirin, 600 mg Plavix, 50 mg Benadryl, placed on heparin drip and cardiology was consulted. Dr. Berman graciously agrees to consultation and management, would like the patient admitted to [facility] with continued cardiac monitoring, n.p.o. at midnight for heart catheterization tomorrow morning. Admitting vital signs blood pressure 172/90, pulse 62, respirations 18, temperature 97.6, O2 saturation 97% on room air. Vital signs reviewed WBC 12.49, RBC 5.09, hemoglobin 14.60, sodium 138, potassium 4.5, BUN 23, creatinine 1.0, troponin 225, proBNP 697. Chest x-ray with arthrosclerosis, no acute pulmonary concerns. Repeat EKG with sinus rhythm, CT 193, QTc 415, no ischemic changes noted. Hospital Course Hospital Course NSTEMI Chest Pain -status post stent to the LAD and RCA x 2. Continue Plavix. Will add moderate intensity statin. Rates are controlled at this time. BP stable. Atrial Fibrillation, now in NSR - Amiodarone gtt, converted to NSR 05/24 - Discharge medications per Cardiology - Continue Eliquis, stop ASA for now Hypertension - No home medication - Admitting blood pressure 172/90 - PRN IV hydralazine GERD - PPI Anxiety/Depression - Stable - Resume home dosing Buspar after verification - Occasionally uses marijuana for treatment Hx of Tick Borne Illness - Treated with course of doxycycline and prednisone in December of this year - Chronic fatigue and joint pain - Managed by PCP at [facility] Discharge: Discharge is in stable condition in care of family. In normal sinus rhythm denies chest pain. Dr. Fuller requested patient be on an event monitor for 15 days, to hold metoprolol due to low heart rate and to discharge without aspirin as he is already on Eliquis and Plavix at discharge. Patient's medication prescribed to his pharmacy, patient denies chest pain or shortness of breath at time of discharge. Patient is vies follow-up with primary care provider in 1 to 3 days, cardiology at the next available appointment. All questions and concerns addressed with patient prior to discharge. Physical Exam Const: COMMON NORMALS: no acute distress and patient oriented x3 HENMT: OTHER: No carotid bruit bilaterally Neck/C-Spine: COMMON NORMALS: no JVD Resp: COMMON NORMALS: normal respiratory effort, No use of accessory muscles and clear to auscultation bilaterally AUSCULTATION: clear to auscultation bilaterally Cardio: COMMON NORMALS: no JVD, regular rate, regular rhythm, S1 normal heart sound present, S2 normal heart sound present and Peripheral pulses 2+ throughout RATE: regular rate RHYTHM: regular rhythm HEART SOUNDS: S1 normal heart sound present and S2 normal heart sound present PERIPHERAL PULSES: Peripheral pulses 2+ throughout Extremity: COMMON NORMALS: no clubbing, cyanosis or edema Neuro: COMMON NORMALS: patient oriented x3 Discharge Data Studies Completed and Pending Completed Studies During Hospitalization Category Date Time Status XR chest 1V portable [id number] Stat Exams 05/22/25 15:30 Completed CV. 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 Laboratory Results WBC 9.94 10^3/uL (3.29-11.43) 05/24/25 03:07 RBC 4.82 10^6/uL (3.85-5.65) 05/24/25 03:07 Hgb 13.70 g/dL (11.27-16.99) 05/24/25 03:07 Hct 41.8 % (37-53) 05/24/25 03:07 MCV 86.7 fl (82-101) 05/24/25 03:07 MCH 28.4 pg (27-33) 05/24/25 03:07 MCHC 32.8 g/dL (30-55) 05/24/25 03:07 RDW 13.7 % (12.1-15.1) 05/24/25 03:07 Plt Count 244 10^3/cmm (157-399) 05/24/25 03:07 MPV 10.9 fL (7.4-10.4) H 05/24/25 03:07 Neut % (Auto) 53.1 % 05/24/25 03:07 Lymph % (Auto) 31.9 % 05/24/25 03:07 [place] % (Auto) 11.5 % 05/24/25 03:07 Eos % (Auto) 2.7 % 05/24/25 03:07 Baso % (Auto) 0.5 % 05/24/25 03:07 Neut # (Auto) 5.28 10^3/uL (1.8-7.7) 05/24/25 03:07 Lymph # (Auto) 3.2 10^3/uL (0.8-4.8) 05/24/25 03:07 [place] # (Auto) 1.1 10^3/uL (0.2-0.9) H 05/24/25 03:07 Eos # (Auto) 0.3 10^3/uL (0.0-0.8) 05/24/25 03:07 Baso # (Auto) 0.1 10^3/uL (0.0-0.1) 05/24/25 03:07 Nucleated RBC % (auto) 0 % 05/24/25 03:07 Nucleated RBCs # 0.0 /100WBC 05/24/25 03:07 APTT 52.6 SECONDS (23.9-36.7) H 05/23/25 04:35 Sodium 138 mmol/L (136-145) 05/24/25 03:07 Potassium 3.9 mmol/L (3.5-5.1) 05/24/25 03:07 Chloride 105 mmol/L (98-107) 05/24/25 03:07 Carbon Dioxide 23 mmol/L (22-29) 05/24/25 03:07 Anion Gap 13.9 (5-19) 05/24/25 03:07 BUN 11 mg/dL (8-23) 05/24/25 03:07 Creatinine 0.9 mg/dL (0.7-1.2) 05/24/25 03:07 GFR Calculation Not Reportable 05/24/25 03:07 Glucose 120 mg/dL (65-115) H 05/24/25 03:07 POC Glucose 112 mg/dL (70-110) H 05/23/25 02:20 Estimat Average Glucose 114 05/22/25 15:44 Hemoglobin A1c 5.6 % (4.0-6.0) 05/22/25 15:44 Calculated Osmolality 287 mOsm/kg (285-295) 05/24/25 03:07 Calcium 9.2 mg/dL (8.5-10.5) 05/24/25 03:07 Magnesium 2.0 mg/dL (1.7-2.3) 05/24/25 03:07 Total Bilirubin 0.3 mg/dL (0.15-1.2) 05/24/25 03:07 AST 16 U/L (0-40) 05/24/25 03:07 ALT 12 U/L (0-41) 05/24/25 03:07 Alkaline Phosphatase 85 U/L (40-130) 05/24/25 03:07 Troponin T Baseline 225 ng/L (0-15) H* 05/22/25 15:44 Troponin T 60 Minute 204.9 ng/L (0-15) H 05/22/25 16:32 Delta Troponin T -20.1 ABS# (0-10) L 05/22/25 16:32 Troponin T Hi Sens 6Hr 198.6 ng/L (0-15) H 05/22/25 22:42 Troponin T Hi Sens 6Hr Delta -26.4 ng/L (0-12) L 05/22/25 22:42 NT-Pro-B Natriuret Pep 697 pg/mL (0-450) H 05/22/25 15:44 Total Protein 6.6 g/dL (6.6-8.7) 05/24/25 03:07 Albumin 3.6 g/dL (3.5-5.2) 05/24/25 03:07 Globulin 3.0 g/dL (1.3-4.6) 05/24/25 03:07 Triglycerides 284 mg/dL (0-150) H 05/22/25 15:44 Cholesterol 260 mg/dL (0-200) H 05/22/25 15:44 LDL Cholesterol, Calc 163 mg/dL (50-129) H 05/22/25 15:44 HDL Cholesterol 40 mg/dL (60-100) L 05/22/25 15:44 LDL/HDL Ratio 4.08 RATIO (0.00-3.22) H 05/22/25 15:44 Cholesterol/HDL Ratio 6.50 mg/dL (1.0-5.00) H 05/22/25 15:44 TSH 1.22 uIU/mL (0.27-4.20) 05/22/25 15:44 Vitals Last Vital Signs Temp 97.3 F L 05/24/25 07:46 Pulse 54 L 05/24/25 07:46 Resp 16 05/24/25 07:46 BP 116/78 05/24/25 07:46 Pulse Ox 96 05/24/25 07:46 O2 Del Method Room Air 05/24/25 03:47 Discharge Plan Discharge Patient Disposition: Home Condition: Stable Prescriptions: New clopidogrel 75 mg Tablet 75 mg PO DAILY 90 Days Qty: 90 0RF atorvastatin 40 mg Tablet 40 mg PO BEDTIME 90 Days Qty: 90 0RF Eliquis 5 mg Tablet 5 mg PO BID@0900,2100 90 Days Qty: 90 0RF Continued cyanocobalamin (vitamin B-12) 1,000 mcg Tablet 1,000 mcg PO DAILY pantoprazole [Protonix] 20 mg Tablet,Delayed Release (Dr/Ec) 20 mg PO QA buspirone [BuSpar] 10 mg Tablet 5 mg PO BID Discharge Order = DC NOW: Discharge Order (Routine); Ordered 05/24/25 Ordered By: Jovita Anand Other Ambulatory Orders: MCT/Event Monitor 15 Days (Routine) Timeframe: 15 Day Facility: [facility] - Location: Radiology Ordered By: Jovita Anand Referrals: Melissa Rodríguez NP [Nurse Practitioner, Cardiology] Referral Note: We have notified your physician's clinic of the need for a follow-up appointment to be scheduled. If you have not heard from them within the next 2 business days, please call them directly. Kar Chaudhary MD [Referring, Family Practice] - 06/03/25 1:00 pm Discharge Diet: Cardiac Discharge Activity: Resume usual activity Patient Instructions: Clopidogrel (By mouth) (Plavix), Apixaban (By mouth) (Eliquis), Coronary Angioplasty (DC), After Radial Heart Catheterization (GEN), Opioid Safety, Post Angiogram Home Care Instructions, Patient Portal & Wanda Instructions Discharge Attestations Time Spent in Discharge Care*: greater than 30 min Quality Metrics Clinical Quality Measures [ Acute Myocardial Infaction { Clinical Trial Participant: No; Contraindication to aspirin: None; Aspirin prescribed; Contraindication to statin: None; Statin prescribed;}] Coding Level of Care Code 41772 Diagnoses Chest pain R07.9 Hypertension I10 NSTEMI (non-ST elevated myocardial infarction) I21.4
--- NOTE | 2025-05-24 09:37 | PM.PN ---
Vitals/I&O/Wt Last Vital Signs Temp 97.3 F L 05/24/25 07:46 Pulse 54 L 05/24/25 07:46 Resp 16 05/24/25 07:46 BP 116/78 05/24/25 07:46 Pulse Ox 96 05/24/25 07:46 O2 Del Method Room Air 05/24/25 03:47 05/23/25 05/24/25 05/24/25 22:59 06:59 14:59 Intake Total 1330.535 / 2249.921 240 / 2489.921 480 / 480 Output Total 600 / 1999 1750 / 1750 Balance 730.535 / 249.921 240 / 489.921 -1270 / -1270 Weight last 48 hrs Weight 178 lb 14.4 oz Weight 178 lb 1.6 oz Weight 178 lb 1 oz Weight 184 lb Data 05/24/25 03:07 05/24/25 03:07 A&P PDMP PDMP Reviewed: Not Reviewed Coding Level of Care Code Acute Code for Chg Fwd
== END 2025-05-24 10:57 | disposition home or self-care (01) | DRG 322 ==
LOC: ER 16:38 → CSU 17:39
PROVIDERS: Internal Medicine; Nurse Practitioner Family; Physician Assistant; Admitting Provider Internal Medicine; Emergency Provider Family Medicine; Visit Provider Registered Nurse
PROC: 027136Z Dilation of Coronary Artery, Two Arteries with Three Drug-eluting Intraluminal Devices, Percutaneous Approach (ICD-10-PCS; principal; 2025-05-23 07:00)
PROC: 027136Z Dilation of Coronary Artery, Two Arteries with Three Drug-eluting Intraluminal Devices, Percutaneous Approach (ICD-10-PCS; 2025-05-23 07:00)
DX: I21.4 Non-ST elevation (NSTEMI) myocardial infarction (principal); I10 Essential (primary) hypertension; K21.9 Gastro-esophageal reflux disease without esophagitis; F41.9 Anxiety disorder, unspecified; F32.A Depression, unspecified; I48.91 Unspecified atrial fibrillation; R00.1 Bradycardia, unspecified; Z79.02 Long term (current) use of antithrombotics/antiplatelets; Z79.01 Long term (current) use of anticoagulants; Z82.49 Family history of ischemic heart disease and other diseases of the circulatory system
CPT/HCPCS: 36415; 36416; 71045; 80053; 80061; 82962; 83036; 83735; 83880; 84443; 84484; 85025; 85347; 85730; 92978; 93005; 93306; 93454; 93571; 96365; 96374; 96375; 99152; 99153; 99285; A4222; C1725; C1753; C1769; C1874; C1887; C1894; C9600; J0282; J0283; J1644; J2060; J2250; J2470; J3010; J3490; J7030; J9999; Q0163; Q9967